=== PATIENT | female | born 1990 | race African-American/Black ===

== ENCOUNTER 2018-08-16 07:30 | Emergency (ER) | payer BC, SELFPAY ==
[2018-08-16 07:59] LABS: #Eosinphils 0.2 thou/uL (0.0-0.7); #Lymphocytes 2.2 thou/uL (1.20-3.40); #Monocytes 0.4 thou/uL (0.11-0.59); #Neutrophils 3.4 thou/uL (1.40-6.50); %Basophils 0.7 % (0.0-1.0); %Eosinophils 2.6 % (0.0-10.0); %Lymphocytes 35.6 % (21.0-51.0); %Monocytes 6.3 % (0.0-10.0); %Neutrophils 54.8 % (42.0-75.0); Hemoglobin 13.5 g/dL (12.0-16.0); Mean Corpuscular HGB CONC 33.2 g/dL (32.0-36.0); Mean Corpuscular Hemoglobin 30.9 pg (27.0-31.0); Mean Platelet Volume 6.5 fL (7.4-10.4); Platelet Count 429 thou/uL (130-400); RBC Distribution Width 12.2 % (11.5-14.5); Red Blood Cell (RBC) Count 4.38 mill/uL (4.20-5.40); White Blood Cell (WBC) Count 6.2 thou/uL (4.8-10.8)
[2018-08-16 08:22] LABS: CKMB 1.2 ng/mL (0-6.6); Troponin I Less than 0.010 ng/mL (< 0.028)
[2018-08-16] MEDS ORDERED: Mag-Al 1200 mg/1200 mg/30 ML UDCUP ONE (08:24)
[2018-08-16] MEDS ORDERED: Lidocaine Viscous Sol 2% 15 ml UD Cup ONE (08:24)
[2018-08-16] MEDS ORDERED: Pantoprazole 40 MG VIAL ONE (08:24)
--- NOTE | 2018-08-16 08:57 | RAD ---
PORTABLE UPRIGHT FRONTAL CHEST RADIOGRAPH: Date: 08-16-18 Comparison: None. History: Chest pain. FINDINGS: Lungs are clear. Heart and mediastinal contours unremarkable. IMPRESSION: NO acute findings. POS: [facility]
[2018-08-16 09:32] LABS: Calcium 9.2 mg/dL (7.8-10.44); Chloride 107 mmol/L (98-107); Potassium 4.3 mmol/L (3.5-5.1); Sodium 136 mmol/L (136-145)
[2018-08-16 09:33] LABS: Globulin 3.2 g/dL (2.4-3.5); Glucose 97 mg/dL (70-105); Protein, Total 7.2 g/dL (6.0-8.3)
[2018-08-16 09:34] LABS: Carbon Dioxide 23 mmol/L (22-29)
[2018-08-16 09:35] LABS: Anion Gap 10 mmol/L (10-20); Bilirubin, Total 0.8 mg/dL (0.2-1.2)
[2018-08-16 09:36] LABS: Alkaline Phosphatase 60 U/L (40-150); Calc. Creatinine Clearance 0 mL/min (70-130); Estimated GFR-MDRD Greater than 90
[2018-08-16 09:37] LABS: BHCG - Serum Negative (NEGATIVE); BUN (Urea Nitrogen) 8 mg/dL (7.0-18.7); Pregs Control Background? CLEAR/WHITE (CLR/WHITE); Pregs Control Bar Appear? YES (CONTROL BAR)
[2018-08-16 09:38] LABS: AST (SGOT) 18 U/L (5-34)
[2018-08-16 09:39] LABS: ALT (SGPT) 15 U/L (8-55); CK (CPK) 105 U/L (29-168); Lipase 16 U/L (8-78)
== END 2018-08-16 09:55 | disposition home or self-care (01) ==
LOC: ERS 07:30
DX: K20.9 Esophagitis, unspecified (principal); F17.210 Nicotine dependence, cigarettes, uncomplicated
CPT/HCPCS: 36415; 71045; 80053; 82553; 83690; 83880; 84484; 84703; 85025; 93005; 96361; 96374; C9113